=== PATIENT | male | born 2000 | race Asian ===

== ENCOUNTER 2024-10-23 15:22 | Emergency (ER) | payer SELFPAY ==
[2024-10-23] MEDS ORDERED: diphenhydrAMINE 50 MG/ML VIAL ONE (15:55)
[2024-10-23] MEDS ORDERED: Metoclopramide HCl 10 MG (2 mL) VIAL ONE (15:56)
[2024-10-23 16:09] LABS: #Basophils 0.08 10x3/uL (0.0-0.2); #Eosinophils 0.04 10x3/uL (0.0-0.7); #Monocytes 0.60 10x3/uL (0.11-0.59); #Neutrophils 1.62 10x3/uL (1.40-6.50); %Basophils 2.3 % (0.0-1.0); %Eosinophils 1.2 % (0.0-10.0); %Lymphocytes 31.7 % (21.0-51.0); %Monocytes 17.4 % (0.0-10.0); %Neutrophils 47.1 % (42.0-75.0); Hematocrit 47.9 % (42.0-52.0); Hemoglobin 15.9 g/dL (14.0-18.0); Mean Corpuscular Hemoglobin 28.1 pg (27.0-31.0); Mean Corpuscular Volume 84.6 fL (78.0-98.0); Platelet Count 173 10x3/uL (130-400); Red Blood Cell (RBC) Count 5.66 mill/uL (4.70-6.10); White Blood Cell (WBC) Count 3.44 10x3/uL (4.8-10.8)
[2024-10-23 16:29] LABS: ALT (SGPT) 70 U/L (Less than 45); AST (SGOT) 57 U/L (11-34); Albumin 4.2 g/dL (3.1-4.5); Alkaline Phosphatase 73 U/L (40-110); Anion Gap 13 mmol/L (10-20); BUN (Urea Nitrogen) 9 mg/dL (8.9-20.6); Bilirubin, Total 0.3 mg/dL (0.3-1.2); CK (CPK) 103 U/L (30-200); Calc. Creatinine Clearance 0 mL/min (70-130); Calcium 9.0 mg/dL (7.8-10.44); Carbon Dioxide 24 mmol/L (22-29); Chloride 108 mmol/L (98-107); Globulin 3.2 g/dL (2.4-3.5); Glucose 87 mg/dL (70-105); Potassium 3.9 mmol/L (3.5-5.1); Sodium 141 mmol/L (136-145)
== END 2024-10-23 18:42 | disposition home or self-care (01) ==
LOC: ERS 15:22
DX: J01.90 Acute sinusitis, unspecified (principal)
CPT/HCPCS: 70450; 80053; 82550; 85025; 96374; 96375; J1200; J2765